=== PATIENT | male | born 1995 | race Caucasian/White ===

== ENCOUNTER 2019-04-18 23:04 | Inpatient (IN) | payer SELFPAY ==
[2019-04-19] MEDS ORDERED: ONDANSETRON 4 MG/2 ML VIAL ONE (01:05)
[2019-04-19] MEDS ORDERED: morphine SULFATE 4 MG/ML VIAL ONE ×2 (01:05→04:12)
[2019-04-19] MEDS ORDERED: FAMOTIDINE 20 MG/50 ML IVPB 20 MG/50 ML MG IVPB ONE ×2 (01:33→03:53)
[2019-04-19] MEDS ORDERED: SODIUM CHLORIDE 0.9% 500 ML INFUS.BAG IV ONE (01:33)
[2019-04-19] MEDS ORDERED: morphine CARPU-JECT 4 MG/1 ML DISP.SYRIN IVPUSH ONE ×2 (01:33→04:06)
[2019-04-19] MEDS ORDERED: SODIUM CHLORIDE 1,000 ML IV STA (01:33)
[2019-04-19] MEDS ORDERED: ONDANSETRON 4 MG/2 ML VIAL IVPB ONE (01:33)
--- NOTE | 2019-04-19 01:35 | PDOC ---
History of Present Illness - General Chief Complaint: Pain Stated Complaint: ABDOMINALAND LEFT SIDE PAIN Time Seen by Provider: 04/18/19 23:33 History Source: Patient Exam Limitations: No Limitations - History of Present Illness Initial Comments: 04/19/19 01:28 Patient is a 23-year-old male with history of exploratory laparotomy for worms as a child complaining of abdominal pain, bloating associated with nausea and vomiting since this morning. Patient states that his pain is gassy type 10/10, continuous, no aggravating or relieving factors. States that he contributed his symptoms to eating fasts a lot of oranges night prior due to his hunger. States he has not been passing gas below since this morning. He denies fever, chills. PMHX: as above PSOCHX: neg etoh, drug, cig ALL: NKDA GENERAL/CONSTITUTIONAL: No fever or chills. No weakness. No weight change. HEAD, EYES, EARS, NOSE AND THROAT: No change in vision. No ear pain or discharge. No sore throat. CARDIOVASCULAR: No chest pain or shortness of breath. RESPIRATORY: No cough, wheezing, or hemoptysis. GASTROINTESTINAL: (+) nausea, vomiting, (-) diarrhea or constipation. No rectal bleeding. GENITOURINARY: No dysuria, frequency, or change in urination. MUSCULOSKELETAL: No joint or muscle swelling or pain. No neck or back pain. SKIN AND BREASTS: No rash or easy bruising. NEUROLOGIC: No headache, vertigo, loss of consciousness, or loss of sensation. PSYCHIATRIC: No depression or anxiety. ENDOCRINE: No increased thirst. No abnormal weight change. HEMATOLOGIC/LYMPHATIC: No anemia, easy bleeding, or history of blood clots. ALLERGIC/IMMUNOLOGIC: No hives or skin allergy. No latex allergy. GENERAL: The patient is awake, alert, and fully oriented, in acute distress, actively vomiting. HEAD: Normal with no signs of trauma. EYES: Pupils equal, round and reactive to light, extraocular movements intact, sclera anicteric, conjunctiva clear. ENT: Ears normal, nares patent, oropharynx clear without exudates. Moist mucous membranes. NECK: Normal range of motion, supple without lymphadenopathy, JVD, or masses. LUNGS: Breath sounds equal, clear to auscultation bilaterally. No wheezes, and no crackles. HEART: Regular rate and rhythm, normal S1 and S2 without murmur, rub. ABDOMEN: Left upper abdomen distention, tympanic, Soft, tenderness to palpation generalized > in left upper quadrant, hypo-bowel sounds. (+)guarding, (+) rebound. No masses. EXTREMITIES: Normal range of motion, no edema. No clubbing or cyanosis. No cords, erythema, or tenderness. NEUROLOGICAL: Cranial nerves II through XII grossly intact. Normal speech, normal gait. PSYCH: Normal mood, normal affect. SKIN: Warm, Dry, normal turgor, no rashes or lesions noted. Past History - Past Medical History Allergies/Adverse Reactions: Allergies Allergy/AdvReac Type Severity Reaction Status Date / Time No Known Allergies Allergy Verified 04/18/19 23:13 Asthma: No Cancer: No Cardiac Disorders: No CVA: No COPD: No CHF: No - Surgical History GI Surgery: Yes (Intestinal obs as a 1y/o in [place]) - Suicide/Smoking/Psychosocial Hx Smoking History: Never smoked Information on smoking cessation initiated: No Drug/Substance Use Hx: No *Physical Exam - Vital Signs Last Vital Signs Temp Pulse Resp BP Pulse Ox 98 F 64 20 130/55 L 100 04/18/19 23:13 04/18/19 23:13 04/18/19 23:13 04/18/19 23:13 04/18/19 23:13 ED Treatment Course - LABORATORY CBC & Chemistry Diagram: 04/19/19 02:04 04/19/19 02:04 Medical Decision Making - Medical Decision Making 04/19/19 01:28 Patient is a 23-year-old male with history of exploratory laparotomy for worms as a child complaining of abdominal pain, bloating associated with nausea and vomiting since this morning. Patient states that his pain is gassy type 10/10, continuous, no aggravating or relieving factors. States that he he contributed to his symptoms to eat and fasts a lot of oranges last night due to his hunger. States he has not been passing gas below since this morning. He denies fever, chills. Patient with symptoms of abdominal pain, nausea, vomiting, passing gas no weight a previous abdominal surgery at risk for obstruction. Labs CT scan Pain meds, antinausea, Pepcid Reassess 04/19/19 03:14 Laboratory Tests 04/19/19 04/19/19 04/19/19 02:04 02:04 02:04 WBC 19.3 H Hgb 17.0 H Hct 51.5 H Plt Count 241 Sodium 136 Potassium 4.2 Chloride 101 Carbon Dioxide 24 Anion Gap 11 BUN 11 Creatinine 0.8 Random Glucose 119 H Lactic Acid 1.2 Lipase 143 04/19/19 04:14 Patient continues to be in pain given additional dose of morphine [address] Scan results pending 04/19/19 04:18 Patient Full Name: ABRIL COLE Patient Accession No: [id number] Patient : 1995 Reason for Exam: ABD PAIN Referring Physician: Patient Name: DOUGLAS SAMUELS THIS IS A PRELIMINARY REPORT FROM [facility] DATE OF SERVICE: 2019-04-19 03:10:19 IMAGES: [id number] EXAM: ABDOMEN \T\ PELVIS CT WITH CONTR HISTORY: Abdominal pain COMPARISON: None. FINDINGS: Lung bases are clear. The visualized cardiac chambers are normal size and configuration. Normal liver, gallbladder, pancreas, spleen, adrenal glands and kidneys. There is a small bowel obstruction small bowel dilated to 3.0 cm. Trace ascites is noted. No abscess or free air. Transition point is visualized in the lower mid abdomen on axial images 92-96, without hernia or obvious mass. There is no aortic aneurysm. There is no significant retroperitoneal lymphadenopathy. There is no evidence of appendicitis, although the appendix is not clearly visualized . The urinary bladder and prostate gland are normal. There is no significant pelvic lymphadenopathy. IMPRESSION: Small bowel obstruction with lower mid abdominal transition point, possibly due to adhesions, without abscess or free air. One or more of the following dose reduction techniques were used: automated exposure control, adjustment of the mA and/or kV according to patient size, use of iterative reconstructive technique. THIS DOCUMENT HAS BEEN ELECTRONICALLY SIGNED Cash Rivers MD 04/19/2019 03:40 EST Audrey Please call [facility] [phone]) with questions. INTERPRETING RADIOLOGIST: Conner Rivers MD Electronically Signed: Apr 19, 2019 03:41AM EDT CT scan of the both place an NG tube and admit the patient 04/19/19 05:14 Case was discussed with Dr. Navarrete who recommends admission to the hospitalist and will follow today while on the floor. *DC/Admit/Observation/Transfer Diagnosis at time of Disposition: Small bowel obstruction Abdominal pain Qualifiers: Abdominal location: generalized Qualified Code(s): R10.84 - Generalized abdominal pain Nausea and vomiting Qualifiers: Vomiting type: unspecified Vomiting Intractability: unspecified Qualified Code( s): R11.2 - Nausea with vomiting, unspecified - Discharge Dispostion Condition at time of disposition: Stable Decision to Admit order: Yes - Referrals - Patient Instructions - Post Discharge Activity
[2019-04-19 02:27] LABS: HEMATOCRIT 51.5 % (35.4-49); MCH 28.1 pg (25.7-33.7); MEAN CELL VOLUME 84.9 fl (80-96); MEAN PLT VOLUME 10.4 fl (7.5-11.1); MONO % 3.8 % (3.8-10.2); NEUT % 85.2 % (42.8-82.8); PLATELET COUNT 241 K/MM3 (134-434); RBC 6.07 M/mm3 (4.00-5.60); WHITE BLOOD COUNT 19.3 K/mm3 (4.0-10.0)
[2019-04-19 02:47] LABS: ALBUMIN 4.4 g/dl (3.4-5.0); BILIRUBIN,TOTAL 0.7 mg/dL (0.2-1); CALCIUM 9.8 mg/dL (8.5-10.1); CREATININE 0.8 mg/dL (0.55-1.3); POTASSIUM 4.2 mmol/L (3.5-5.1); TOT PROT 8.6 g/dl (6.4-8.2)
[2019-04-19] MEDS ORDERED: KETOROLAC TROMETHAMINE 30 MG/1 ML VIAL IVPUSH ONE (04:11)
[2019-04-19] MEDS ORDERED: ONDANSETRON 4 MG/2 ML VIAL IVPUSH PRN (05:54)
[2019-04-19] MEDS ORDERED: ACETAMINOPHEN 1000 MG/100 ML VIAL (NON FORMULARY) IVPB ONE (05:56)
--- NOTE | 2019-04-19 06:00 | HP ---
CHIEF COMPLAINT: abdominal pain PCP: none HISTORY OF PRESENT ILLNESS: 23 year old male with no significant past medical history presents to the hospital for abdominal pain, nausea and vomiting of 1 day duration. Reports that the pain started yesterday and progressed to severe 10/10 diffuse abdominal pain and bloating with associated nausea. Reports that his last BM was last night. Currently he states that he is not passing gas or having any BMs. Denies any new or exotic food intake. States that he had surgery in [place] for "worms" when he was 1 years old. Reports that they took out a piece of his intestine. Afterwards he denies having issues until around 1 year ago when he experienced similar symptoms which resolved spontaneously at home. He has not been to a doctor since then. No other medical problems. Currently denies chest pain, shortness of breath, fevers, chills. ER course was notable for: (1) WBC 19 (2) CT scan showing dilated small bowel with definite transition point in mid- lower abdomen consistent with small bowel obstruction (3) PAST MEDICAL HISTORY: denies PAST SURGICAL HISTORY: exploratory laparotomy with small bowel resection in [place] 22 years ago Social History: Smoking: denies Alcohol: denies Drugs: denies Family History: mother and father with diabetes Allergies No Known Allergies Allergy (Verified 04/18/19 23:13) HOME MEDICATIONS: REVIEW OF SYSTEMS CONSTITUTIONAL: Absent: fever, chills, diaphoresis, generalized weakness, malaise, loss of appetite, weight change HEENT: Absent: rhinorrhea, nasal congestion, throat pain, throat swelling, difficulty swallowing, mouth swelling, ear pain, eye pain, visual changes CARDIOVASCULAR: Absent: chest pain, syncope, palpitations, irregular heart rate, lightheadedness , peripheral edema RESPIRATORY: Absent: cough, shortness of breath, dyspnea with exertion, orthopnea, wheezing, stridor, hemoptysis GASTROINTESTINAL:abdominal pain, abdominal distension, nausea, vomiting, constipation Absent: diarrhea, melena, hematochezia GENITOURINARY: Absent: dysuria, frequency, urgency, hesitancy, hematuria, flank pain, genital pain MUSCULOSKELETAL: Absent: myalgia, arthralgia, joint swelling, back pain, neck pain SKIN: Absent: rash, itching, pallor HEMATOLOGIC/IMMUNOLOGIC: Absent: easy bleeding, easy bruising, lymphadenopathy, frequent infections ENDOCRINE: Absent: unexplained weight gain, unexplained weight loss, heat intolerance, cold intolerance NEUROLOGIC: Absent: headache, focal weakness or paresthesias, dizziness, unsteady gait, seizure, mental status changes, bladder or bowel incontinence PSYCHIATRIC: Absent: anxiety, depression, suicidal or homicidal ideation, hallucinations. PHYSICAL EXAMINATION Vital Signs - 24 hr 04/18/19 04/19/19 04/19/19 23:13 04:05 04:11 Temperature 98 F 97.8 F Pulse Rate 64 Pulse Rate [ 64 Radial] Respiratory 20 20 Rate Blood Pressure 130/55 L Blood Pressure 124/72 [Right Arm] O2 Sat by Pulse 100 97 97 Oximetry (%) GENERAL: A&Ox3, mild distress EYES: PERRLA, EOMI ENT: Moist mucus membranes, NGT inserted in nose draining yellowish-clear fluid with bloody streaks NECK: No JVD LUNGS: CTA, no wheezes HEART: mildly tachycardic but regular, no murmurs ABDOMEN: abdomen distended more on LLQ than elsewhere, bowel sounds absent, tender to palpation diffusely with majority of tenderness in LLQ; surgical scars noted in mid/hypogastrum and RLQ, well healed. MUSCULOSKELETAL: No CVA Tenderness EXTREMITIES: 2+ pulses, no edema. NEUROLOGICAL: Cranial nerves II-XII intact. Laboratory Results - last 24 hr 04/19/19 04/19/19 04/19/19 02:04 02:04 02:04 WBC 19.3 H RBC 6.07 H Hgb 17.0 H Hct 51.5 H MCV 84.9 MCH 28.1 MCHC 33.0 RDW 14.0 Plt Count 241 MPV 10.4 Absolute Neuts (auto) 16.4 H Neutrophils % 85.2 H Lymphocytes % 11.0 Monocytes % 3.8 Eosinophils % 0.0 Basophils % 0.0 Nucleated RBC % 0 Sodium 136 Potassium 4.2 Chloride 101 Carbon Dioxide 24 Anion Gap 11 BUN 11 Creatinine 0.8 Est GFR (CKD-EPI)AfAm 143.90 Est GFR (CKD-EPI)NonAf 124.16 Random Glucose 119 H Lactic Acid 1.2 Calcium 9.8 Total Bilirubin 0.7 AST 18 ALT 33 Alkaline Phosphatase 98 Total Protein 8.6 H Albumin 4.4 Lipase 143 ASSESSMENT/PLAN: 23 year old male with no significant past medical history presents to the hospital for abdominal pain, nausea and vomiting of 1 day duration and admitted for the evaluation and management of small bowel obstruction #Small Bowel Obstruction: likely 2/2 to postoperative adhesions from his surgery 22 years ago. Given he had a similar episode 1 year ago, it is possible that this is an exacerbated episode of adhesions producing SBO. -CT scan showing dilated small bowel with definite transition point in mid- lower abdomen consistent with small bowel obstruction -keep NPO -LR @ 125cc/hr, 2 bags ordered before evaluation -EKG ordered -WBC 19, likely reactive, will hold abx for now -surgery Dr. Castelan called by ED, will evaluate in AM -pain control with ofirmev, reassess in AM -NGT to decompress stomach and proximal small bowel -carefully monitor electrolytes in the morning and replete as necessary #Leukocytosis: likely reactive from pain and surrounding inflammation around SBO -monitor WBC -monitor off Abx #FEN -LR @ 125cc/hr -lytes normal, replete as necessary this AM -NPO #Prophylaxis -SCDs for prophylaxis #Disposition -admit med surg, pending surgical evaluation Visit type - Emergency Visit Emergency Visit: Yes Care time: The patient presented to the Emergency Department on the above date and was hospitalized for further evaluation of their emergent condition. - New Patient This patient is new to me today: Yes Date on this admission: 04/19/19 - Critical Care Critical Care patient: No
[2019-04-19] MEDS ORDERED: ACETAMINOPHEN INJECTION 100 ML IVPB ONE (06:08)
--- NOTE | 2019-04-19 06:14 | PN ---
Teaching Attending Note Name of Resident: Jose Newberry ATTENDING PHYSICIAN STATEMENT I saw and evaluated the patient. Chart, data, imaging reviewed. I reviewed the resident's note and discussed the case with the resident. I agree with the resident's findings and plan as documented. SUBJECTIVE: 23yo man with medical history remarkable only for intestinal surgery when he was 3 for "worms" - resulting in partial bowel resection, c/o mid- severe mid abdominal pain x 1 day. Last BM was one day ago, not passing gas since then. Patient with some nausea but not vomiting. No diarrhea or fevers. OBJECTIVE: Last Vital Signs Temp Pulse Resp BP Pulse Ox 97.8 F 64 20 124/72 97 04/19/19 04:11 04/19/19 04:11 04/19/19 04:11 04/19/19 04:11 04/19/19 04:11 gen - appears uncomfortable, well built heent- moist oral mucosa cor- s1+s2+rrr chest clear abdomen - soft, nondistended, decreased BS, tenderness to palp LLQ, no rebound tenderness, large scar ext - no pedal edema Abnormal Lab Results 04/19/19 04/19/19 02:04 02:04 WBC 19.3 H RBC 6.07 H Hgb 17.0 H Hct 51.5 H Absolute Neuts (auto) 16.4 H Neutrophils % 85.2 H Random Glucose 119 H Total Protein 8.[address] of abdomen/pelvis- reviewed ekg - reviewed ASSESSMENT AND PLAN: #SBO, no free air on CT abd read. Lactate wnl. SBO may be secondary to adhesions from prior surgery. -admit to med/surg -surgery consulted -NPO -check electrolytes- mg, phos, replete prn -IV fluid hydration -IV tylenol prn for pain -zofran IV prn for nausea -heparin sc for DVT ppx #Leukocytosis- thought to be reactive to SBO, no evidence of infection at this time. -monitor off antibiotics for now -trend cbc -monitor vs closely
[2019-04-19] MEDS: LACTATED RINGERS SOLUTION 1,000 ML IV SCH ×2 (06:17→16:37)
[2019-04-19 06:54] LABS: HEMATOCRIT 48.6 % (35.4-49); HEMOGLOBIN 16.4 GM/dL (11.7-16.9); MCH 28.8 pg (25.7-33.7); MCHC 33.8 g/dl (32.0-35.9); MEAN CELL VOLUME 85.3 fl (80-96); MEAN PLT VOLUME 9.9 fl (7.5-11.1); PLATELET COUNT 213 K/MM3 (134-434); RBC 5.69 M/mm3 (4.00-5.60); RDW 14.1 % (11.9-15.9); WHITE BLOOD COUNT 15.9 K/mm3 (4.0-10.0)
[2019-04-19 07:16] LABS: ALBUMIN 3.7 g/dl (3.4-5.0); BILIRUBIN,TOTAL 0.8 mg/dL (0.2-1); CALCIUM 8.8 mg/dL (8.5-10.1); CREATININE 0.7 mg/dL (0.55-1.3); MAGNESIUM 2.2 mg/dL (1.8-2.4); PHOSPHOROUS 4.9 mg/dL (2.5-4.9); POTASSIUM 3.7 mmol/L (3.5-5.1); TOT PROT 7.3 g/dl (6.4-8.2)
--- NOTE | 2019-04-19 09:12 | PN ---
Progress Note, Physician Chief Complaint: abdominal pain and nausea History of Present Illness: 23 year old male who presents to the hospital for abdominal pain, nausea and vomiting of 1 day duration. Patient reports a past surgical history of intestinal surgery when he was around 3 years old after eating soil. On admission, he reports that the abdominal pain started 2 days ago and progressed to severe diffused abdominal pain, with bloating and nausea. He had a BM 2 days ago. Currently not passing gas. Patient does not have a PCP currently and denies any other medical problems. Patient was seen by surgery and no surgical interventions planned at this time. He is being followed by surgery. Currently denies chest pain, shortness of breath, fevers, chills. On admission with WBC was [address] showed dilated small bowel with definite transition point in mid-lower abdomen consistent with small bowel obstruction. An NGT has been placed to low intermittent suction. - Current Medication List Current Medications: Active Medications Acetaminophen (Ofirmev Injection -) 1,000 mg IVPB Q6H PRN PRN Reason: PAIN LEVEL 7 - 10 Lactated Ringer's (Lactated Ringers Solution) 1,000 mls @ 125 mls/hr IV [facility] Stop: 04/20/19 13:59 Last Admin: 04/19/19 06:17 Dose: 125 mls/hr Ondansetron HCl (Zofran Injection) 4 mg IVPUSH Q6H PRN PRN Reason: NAUSEA - Objective Vital Signs: Vital Signs Temperature 98.7 F 04/19/19 06:25 Pulse Rate 64 04/19/19 07:46 Respiratory Rate 18 04/19/19 07:46 Blood Pressure 109/72 04/19/19 07:46 O2 Sat by Pulse Oximetry (%) 97 04/19/19 07:46 Constitutional: Yes: Calm Eyes: Yes: WNL HENT: Yes: Atraumatic Neck: Yes: WNL Cardiovascular: Yes: Regular Rate and Rhythm Respiratory: Yes: Regular, CTA Bilaterally Gastrointestinal: Yes: Soft, Hypoactive Bowel Sounds ...Rectal Exam: Yes: Deferred Edema: No Integumentary: Yes: WNL Labs: CBC, BMP 04/19/19 06:30 04/19/19 06:30 - ....Imaging Cat Scan: Image Reviewed Problem List - Problems (1) Abdominal pain Assessment/Plan: On admission with WBC was [address] showed dilated small bowel with definite transition point in mid-lower abdomen consistent with small bowel obstruction. An NGT has been placed to low intermittent suction. WBC currently 15 and he is afebrile. Monitor WBC and for any symptoms of sepsis, currently does not have any. Monitor off antibiotics. morphine for pain, zofran for nausea Code(s): R10.9 - UNSPECIFIED ABDOMINAL PAIN Qualifiers: Abdominal location: generalized Qualified Code(s): R10.84 - Generalized abdominal pain (2) Small bowel obstruction Assessment/Plan: conservative management of SBO per surgery. monitor NGT output Code(s): K56.609 - UNSP INTESTNL OBST, UNSP TO PARTIAL VERSUS COMPLETE OBST (3) Prophylactic measure Assessment/Plan: fen NPO IVF monitor electrolytes prophy SCDs full code Code(s): Z29.9 - ENCOUNTER FOR PROPHYLACTIC MEASURES, UNSPECIFIED Visit type - Emergency Visit Emergency Visit: Yes ED Registration Date: 04/19/19 Care time: The patient presented to the Emergency Department on the above date and was hospitalized for further evaluation of their emergent condition. - New Patient This patient is new to me today: Yes Date on this admission: 04/19/19 - Critical Care Critical Care patient: No - Discharge Referral Referred to [facility] Med [facility] No
[2019-04-19 10:41] VITALS: BMI 27.9
--- NOTE | 2019-04-19 11:09 | EKG ---
Test Reason : Blood Pressure : / mmHG Vent. Rate : 070 BPM Atrial Rate : 070 BPM P-R Int : 138 ms QRS Dur : 086 ms QT Int : 382 ms P-R-T Axes : 062 002 004 degrees QTc Int : 412 ms NORMAL SINUS RHYTHM INFERIOR INFARCT , AGE UNDETERMINED ABNORMAL ECG NO PREVIOUS ECGS AVAILABLE Confirmed by FERCHO BARNES MD ([id number]) on 04/19/2019 11:08:52 AM Referred By: Confirmed By:FERCHO BARNES MD
--- NOTE | 2019-04-19 16:49 | CONS ---
DATE OF CONSULTATION: 04/19/2019 REASON FOR CONSULTATION: Small bowel obstruction. This is an emergent consultation. 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 He subsequently had that colostomy reversed. He was well until approximately 8 years ago, when he was admitted and treated conservatively for a mechanical bowel obstruction secondary to be secondary to adhesions. He has been well for the past 8 years until yesterday, when he ate a large amount of oranges last night, and into this morning he developed abdominal pain, nausea, and vomiting. He had a CAT scan of the abdomen and pelvis which is suggestive of a mechanical bowel obstruction located at the distal ileum with a transition point seen. There was no ascites noted. His white blood cell count was 19 on arrival and repeat was 15,000. He was admitted to the hospital with nasogastric tube decompression. He has had clear light gastric content that is not substantial in his nasogastric tube. He denies flatus, denies bowel movement. PAST MEDICAL HISTORY: As in HPI. PAST SURGICAL HISTORY: As in HPI. ALLERGIES: No known drug allergies. FAMILY HISTORY: Negative for family. SOCIAL HISTORY: Negative for alcohol and tobacco. MEDICATION: He takes no medications. REVIEW OF SYSTEMS: GENERAL: Denies fatigue or malaise. CARDIAC: Denies chest pain or palpitations. RESPIRATORY: Has shortness of breath, wheeze. GASTROINTESTINAL: As in HPI. Denies recent weight loss. GENITOURINARY: Denies dysuria. MUSCULOSKELETAL: Denies joint pain PSYCHIATRIC: Denies hearing voices. PHYSICAL EXAMINATION: GENERAL: Well-developed, well-nourished 23-year-old male in no distress. HEAD: Normocephalic, sclerae anicteric. NECK: Supple. CHEST: Clear. ABDOMEN: Soft. It is mildly distended. He has a lower midline surgical scar, and he has a right paramedian surgical scar. He has no obvious hernias. He has minimal tenderness. EXTREMITIES: Show no edema. LABORATORY: As stated in the HPI. IMAGING: As stated in the HPI. ASSESSMENT: A 23-year-old male with previous surgery for bowel obstruction with colostomy and reversal of colostomy. He has had history of adhesive small bowel disease 8 years ago, and now presents with small bowel obstruction after eating a large amount of oranges. Clinically this is a mechanical bowel obstruction likely from a narrow portion of significant fiber bolus. RECOMMENDATION: Continue nasogastric tube. I suspect the patient will be successfully treated conservatively. He wishes to avoid a laparotomy in this setting, as that could cause future scar tissue, which could cause future obstructions. Patient is currently nontoxic without evidence of bowel compromise. If he does not get better in the next several days, he may require surgical intervention. DO CONNER FARRIS/[id number] MTDD
[2019-04-19] MEDS: ACETAMINOPHEN 1000 MG/100 ML VIAL (NON FORMULARY) IVPB PRN (17:36)
[2019-04-19] MEDS ORDERED: MORPHINE SULFATE 2 MG/ML VIAL IM PRN (22:41)
[2019-04-20 06:47] LABS: BASO % 0.2 % (0-2.0); EOS % 0.2 % (0-4.5); HEMATOCRIT 45.3 % (35.4-49); HEMOGLOBIN 15.3 GM/dL (11.7-16.9); LYMPH % 20.1 % (8-40); MCH 28.9 pg (25.7-33.7); MCHC 33.8 g/dl (32.0-35.9); MEAN CELL VOLUME 85.4 fl (80-96); MEAN PLT VOLUME 9.8 fl (7.5-11.1); MONO % 7.3 % (3.8-10.2); NEUT % 72.2 % (42.8-82.8); PLATELET COUNT 215 K/MM3 (134-434); RBC 5.31 M/mm3 (4.00-5.60); WHITE BLOOD COUNT 9.6 K/mm3 (4.0-10.0)
[2019-04-20 07:17] LABS: ALBUMIN 3.1 g/dl (3.4-5.0); BILIRUBIN,TOTAL 0.5 mg/dL (0.2-1); CALCIUM 8.6 mg/dL (8.5-10.1); CREATININE 0.8 mg/dL (0.55-1.3); MAGNESIUM 2.1 mg/dL (1.8-2.4); POTASSIUM 4.6 mmol/L (3.5-5.1); TOT PROT 6.4 g/dl (6.4-8.2)
[2019-04-20] MEDS: LACTATED RINGERS SOLUTION 1,000 ML IV SCH (07:45)
--- NOTE | 2019-04-20 07:51 | PN ---
Progress Note, Physician Chief Complaint: abdominal pain History of Present Illness: 23 year old male who presents to the hospital for abdominal pain, nausea and vomiting x 1day Patient reports a past surgical history of intestinal surgery when he was around 3 years old after eating soil. On admission, he reports that the abdominal pain started 2 days ago and progressed to severe diffused abdominal pain, with bloating and nausea. On admission had a BM 2 days ago, not passing gas. Patient was seen by surgery and no surgical interventions planned at this time. On admission with WBC was [address] showed dilated small bowel with definite transition point in mid-lower abdomen consistent with small bowel obstruction. An NGT has been placed to low intermittent suction. - Current Medication List Current Medications: Active Medications Acetaminophen (Ofirmev Injection -) 1,000 mg IVPB Q6H PRN PRN Reason: PAIN LEVEL 7 - 10 Last Admin: 04/19/19 17:36 Dose: 1,000 mg Lactated Ringer's (Lactated Ringers Solution) 1,000 mls @ 125 mls/hr IV ASDIR DIMITRY Stop: 04/20/19 13:59 Last Admin: 04/20/19 07:45 Dose: 125 mls/hr Morphine Sulfate (Morphine Sulfate) 2 mg IM Q6H PRN PRN Reason: PAIN LEVEL 7 - 10 Ondansetron HCl (Zofran Injection) 4 mg IVPUSH Q6H PRN PRN Reason: NAUSEA Last Admin: 04/19/19 21:15 Dose: 4 mg Pantoprazole Sodium (Protonix Iv) 40 mg IVPUSH DAILY [facility] - Objective Vital Signs: Vital Signs Temperature 98.5 F 04/19/19 22:00 Pulse Rate 68 04/19/19 22:00 Respiratory Rate 16 04/19/19 22:00 Blood Pressure 124/72 04/19/19 22:00 O2 Sat by Pulse Oximetry (%) 95 04/19/19 21:00 Constitutional: Yes: Well Nourished, No Distress, Calm Eyes: Yes: WNL, Conjunctiva Clear, EOM Intact HENT: Yes: WNL, Atraumatic, Normocephalic Neck: Yes: WNL, Supple, Trachea Midline Cardiovascular: Yes: WNL, Regular Rate and Rhythm Respiratory: Yes: WNL, Regular, CTA Bilaterally Gastrointestinal: Yes: WNL, Soft, Hypoactive Bowel Sounds, Tenderness (diffuse) , Other (NGT to right nares to LIWS) ...Rectal Exam: Yes: Deferred Genitourinary: Yes: WNL Musculoskeletal: Yes: WNL Extremities: Yes: WNL Edema: No Peripheral Pulses WNL: Yes Integumentary: Yes: WNL Neurological: Yes: WNL, Alert, Oriented ...Motor Strength: WNL Psychiatric: Yes: WNL Labs: CBC, BMP 04/20/19 06:15 04/20/19 06:15 - ....Imaging Chest X-ray: Report Reviewed Cat Scan: Report Reviewed EKG: Report Reviewed Problem List - Problems (1) Abdominal pain Assessment/Plan: urgery pt seen and examined. feels better with less pain. 2 small bm without flatus. ngt 350 clear abd- soft, moderately distended, mild tenderness Plan- psbo. cont ngt. cont npo. kub to follow migration of contrast Code(s): R10.9 - UNSPECIFIED ABDOMINAL PAIN Qualifiers: Abdominal location: generalized Qualified Code(s): R10.84 - Generalized abdominal pain (2) Nausea and vomiting Assessment/Plan: mild nauseas, no vomiting Maintain NPO Zofran PRN Code(s): R11.2 - NAUSEA WITH VOMITING, UNSPECIFIED Qualifiers: Vomiting type: unspecified Vomiting Intractability: unspecified Qualified Code(s): R11.2 - Nausea with vomiting, unspecified (3) Prophylactic measure Assessment/Plan: prophy SCDs full code Dispo maintain as inpatient Code(s): Z29.9 - ENCOUNTER FOR PROPHYLACTIC MEASURES, UNSPECIFIED (4) Small bowel obstruction Assessment/Plan: -conservative management of SBO per surgery. monitor NGT output NPO serial AXR Code(s): K56.609 - UNSP INTESTNL OBST, UNSP TO PARTIAL VERSUS COMPLETE OBST Visit type - Emergency Visit Emergency Visit: Yes ED Registration Date: 04/19/19 Care time: The patient presented to the Emergency Department on the above date and was hospitalized for further evaluation of their emergent condition. - New Patient This patient is new to me today: Yes Date on this admission: 04/20/19 - Critical Care Critical Care patient: No - Discharge Referral Referred to [facility] Med P.C.: No
[2019-04-20] MEDS: LACTATED RINGERS SOLUTION 1,000 ML/1,000 ML INFUS.BAG IV SCH ×2 (09:25→16:23)
[2019-04-20] MEDS: PANTOPRAZOLE SODIUM 40 MG VIAL IVPUSH SCH (09:26)
[2019-04-20] MEDS: ACETAMINOPHEN 1000 MG/100 ML VIAL (NON FORMULARY) IVPB PRN (09:32)
--- NOTE | 2019-04-20 13:08 | PN ---
Progress Note (short form) - Note Progress Note: surgery pt seen and examined. feels better with less pain. 2 small bm without flatus. ngt 350 clear abd- soft, moderately distended, mild tenderness Plan- psbo. cont ngt. cont npo. kub to follow migration of contrast
[2019-04-21] MEDS: LACTATED RINGERS SOLUTION 1,000 ML/1,000 ML INFUS.BAG IV SCH ×2 (02:31→11:23)
--- NOTE | 2019-04-21 07:46 | PN ---
Progress Note, Physician Chief Complaint: abdominal pain History of Present Illness: 23 year old male who presents to the hospital for abdominal pain, nausea and vomiting x 1day Patient reports a past surgical history of intestinal surgery when he was around 3 years old after eating soil. On admission, he reports that the abdominal pain started 2 days ago and progressed to severe diffused abdominal pain, with bloating and nausea. On admission had a BM 2 days ago, not passing gas. Patient was seen by surgery and no surgical interventions planned at this time. On admission with WBC was [address] showed dilated small bowel with definite transition point in mid-lower abdomen consistent with small bowel obstruction. An NGT has been placed to low intermittent suction. - Current Medication List Current Medications: Active Medications Acetaminophen (Ofirmev Injection -) 1,000 mg IVPB Q6H PRN PRN Reason: PAIN LEVEL 7 - 10 Last Admin: 04/20/19 09:32 Dose: 1,000 mg Lactated Ringer's (Lactated Ringers Solution) 1,000 ml in 1,000 mls @ 125 mls/ hr IV ASDIR [facility] Last Admin: 04/21/19 02:31 Dose: 125 mls/hr Morphine Sulfate (Morphine Sulfate) 2 mg IM Q6H PRN PRN Reason: PAIN LEVEL 7 - 10 Ondansetron HCl (Zofran Injection) 4 mg IVPUSH Q6H PRN PRN Reason: NAUSEA Last Admin: 04/19/19 21:15 Dose: 4 mg Pantoprazole Sodium (Protonix Iv) 40 mg IVPUSH DAILY [facility] Last Admin: 04/20/19 09:26 Dose: 40 mg - Objective Vital Signs: Vital Signs Temperature 98.9 F 04/21/19 05:51 Pulse Rate 75 04/21/19 05:51 Respiratory Rate 18 04/21/19 05:51 Blood Pressure 113/62 04/21/19 05:51 O2 Sat by Pulse Oximetry (%) 96 04/20/19 21:00 Constitutional: Yes: Well Nourished, No Distress, Calm Eyes: Yes: WNL, Conjunctiva Clear, EOM Intact HENT: Yes: WNL, Atraumatic, Normocephalic Neck: Yes: WNL, Supple, Trachea Midline Cardiovascular: Yes: WNL, Regular Rate and Rhythm Respiratory: Yes: WNL, Regular, CTA Bilaterally Gastrointestinal: Yes: WNL, Soft, Hypoactive Bowel Sounds ...Rectal Exam: Yes: Deferred Genitourinary: Yes: WNL Musculoskeletal: Yes: WNL Extremities: Yes: WNL Edema: No Integumentary: Yes: WNL Neurological: Yes: WNL, Alert, Oriented ...Motor Strength: WNL Psychiatric: Yes: WNL, Alert, Oriented Labs: CBC, BMP 04/20/19 06:15 04/20/19 06:15 - ....Imaging Chest X-ray: Report Reviewed, Image Reviewed Cat Scan: Report Reviewed (abdominal) Problem List - Problems (1) Abdominal pain Assessment/Plan: pateint with minimal abd pain today, had large BH today and [address] Castelan and NGT to be removed Code(s): R10.9 - UNSPECIFIED ABDOMINAL PAIN Qualifiers: Abdominal location: generalized Qualified Code(s): R10.84 - Generalized abdominal pain (2) Nausea and vomiting Assessment/Plan: No N/V Maintain NPO, if for pain, N/V overnight may start clears Zofran PRN Code(s): R11.2 - NAUSEA WITH VOMITING, UNSPECIFIED Qualifiers: Vomiting type: unspecified Vomiting Intractability: unspecified Qualified Code(s): R11.2 - Nausea with vomiting, unspecified (3) Prophylactic measure Assessment/Plan: prophy SCDs full code Dispo maintain as inpatient Possible dc if no pain , N/V tomorrow after eating Code(s): Z29.9 - ENCOUNTER FOR PROPHYLACTIC MEASURES, UNSPECIFIED (4) Small bowel obstruction Assessment/Plan: -resolving appreciate Surgery input Code(s): K56.609 - UNSP INTESTNL OBST, UNSP TO PARTIAL VERSUS COMPLETE OBST Visit type - Emergency Visit Emergency Visit: Yes ED Registration Date: 04/19/19 Care time: The patient presented to the Emergency Department on the above date and was hospitalized for further evaluation of their emergent condition. - New Patient This patient is new to me today: No - Critical Care Critical Care patient: No - Discharge Referral Referred to [facility] Med P.C.: No
[2019-04-21 08:58] LABS: BASO % 0.2 % (0-2.0); EOS % 0.7 % (0-4.5); HEMATOCRIT 41.1 % (35.4-49); LYMPH % 28.1 % (8-40); MCH 28.8 pg (25.7-33.7); MEAN CELL VOLUME 84.8 fl (80-96); MEAN PLT VOLUME 10.2 fl (7.5-11.1); MONO % 7.7 % (3.8-10.2); NEUT % 63.3 % (42.8-82.8); PLATELET COUNT 192 K/MM3 (134-434); RBC 4.85 M/mm3 (4.00-5.60); RDW 14.1 % (11.9-15.9); WHITE BLOOD COUNT 7.8 K/mm3 (4.0-10.0)
[2019-04-21] MEDS: PANTOPRAZOLE SODIUM 40 MG VIAL IVPUSH SCH (09:01)
[2019-04-21 09:30] LABS: ALBUMIN 2.9 g/dl (3.4-5.0); BILIRUBIN,TOTAL 0.6 mg/dL (0.2-1); CALCIUM 8.5 mg/dL (8.5-10.1); CREATININE 0.7 mg/dL (0.55-1.3); MAGNESIUM 2.2 mg/dL (1.8-2.4); POTASSIUM 4.1 mmol/L (3.5-5.1); TOT PROT 6.1 g/dl (6.4-8.2)
--- NOTE | 2019-04-21 11:54 | PN ---
Progress Note (short form) - Note Progress Note: surgery pt seen and examined. had large bm and flatus and is hungy. kub shows gas in colon. abd- soft, moderate distension Plan- resolving psbo. remove ngt. keep npo today. likely liquids tomorrow and d/c home if tolerates.
[2019-04-22 07:21] LABS: BASO % 0.2 % (0-2.0); HEMATOCRIT 40.8 % (35.4-49); HEMOGLOBIN 13.8 GM/dL (11.7-16.9); MCH 28.8 pg (25.7-33.7); MCHC 33.8 g/dl (32.0-35.9); MEAN CELL VOLUME 85.1 fl (80-96); MEAN PLT VOLUME 10.6 fl (7.5-11.1); MONO % 7.1 % (3.8-10.2); NEUT % 53.7 % (42.8-82.8); PLATELET COUNT 199 K/MM3 (134-434); RBC 4.79 M/mm3 (4.00-5.60); RDW 13.5 % (11.9-15.9); WHITE BLOOD COUNT 6.9 K/mm3 (4.0-10.0)
[2019-04-22 07:27] LABS: BILIRUBIN,TOTAL 0.5 mg/dL (0.2-1); CALCIUM 8.4 mg/dL (8.5-10.1); CREATININE 0.7 mg/dL (0.55-1.3); MAGNESIUM 2.1 mg/dL (1.8-2.4); POTASSIUM 4.4 mmol/L (3.5-5.1)
[2019-04-22] MEDS: PANTOPRAZOLE SODIUM 40 MG VIAL IVPUSH SCH (10:12)
[2019-04-22] MEDS: LACTATED RINGERS SOLUTION 1,000 ML/1,000 ML INFUS.BAG IV SCH (10:12)
--- NOTE | 2019-04-22 12:16 | PN ---
Progress Note (short form) - Note Progress Note: surgery pt seen and examined. feels well. on clear liquids and tolerating so far. no nausea. no pain. kub reviewed abd- soft, mild distension, nt Plan- resolving psbo. if tolerates can d/c today on liquids till Friday. Can advance to regular diet at home at that time. f/u prn.
[2019-04-22 13:25] VITALS: BP 114/72; PULSE 72; TEMP 98.7
--- NOTE | 2019-04-22 14:17 | DS ---
Physical Examination Vital Signs: Vital Signs Temperature 98.7 F 04/22/19 13:23 Pulse Rate 72 04/22/19 13:23 Respiratory Rate 18 04/22/19 13:23 Blood Pressure 114/72 04/22/19 13:23 O2 Sat by Pulse Oximetry (%) 99 04/22/19 09:00 Constitutional: Yes: Well Nourished, No Distress, Calm Eyes: Yes: WNL, Conjunctiva Clear, EOM Intact HENT: Yes: WNL, Atraumatic, Normocephalic Neck: Yes: WNL, Supple, Trachea Midline Cardiovascular: Yes: WNL, Regular Rate and Rhythm Respiratory: Yes: WNL, Regular, CTA Bilaterally Gastrointestinal: Yes: WNL, Normal Bowel Sounds, Soft ...Rectal Exam: Yes: Deferred Renal/: Yes: WNL Musculoskeletal: Yes: WNL Extremities: Yes: WNL Peripheral Pulses WNL: Yes Integumentary: Yes: WNL Neurological: Yes: WNL, Alert, Oriented ...Motor Strength: WNL Psychiatric: Yes: WNL Labs: CBC, BMP 04/22/19 06:00 04/22/19 06:00 Discharge Summary Reason For Visit: SMALL BOWEL OBSTRUCTION,NAUSEA AND VOMITING, Current Active Problems Nausea and vomiting (Acute) Prophylactic measure (Acute) Small bowel obstruction (Acute) Hospital Course: NGT placed with complete bowel rest since admission. NGT removed 04/21 and liquids introduced on 04/22. No abdominal pain, N/V. Patient to be discharged home on liquid diet until friday and then resume regular diet. Follow up with GI as needed. Condition: Good - Instructions Diet, Activity, Other Instructions: DIET ONLY clear liquids until Friday-soups, juices, tea/ coffee(decaf) small amount of skim milk allowed. Start regular food on friday-keep the diet light and bland -no heavy spices, fried foods for a couple of weeks. If your'e not have daily bowel movements or passing gas call the hospital. Disposition: HOME This patient is new to me today: No Emergency Visit: Yes ED Registration Date: 04/19/19 Care time: The patient presented to the Emergency Department on the above date and was hospitalized for further evaluation of their emergent condition. Critical Care patient: No - Discharge Referral Referred to [facility] Med P.C.: No
== END 2019-04-22 14:50 | disposition home or self-care (01) | DRG 247 ==
LOC: JER 23:04 → JERBED 04-19 05:46 → J7W 04-19 07:58
PROVIDERS: ADMIT Internal Medicine; ATTEND Nurse Practitioner Acute Care
PROC: 0D9670Z Drainage of Stomach with Drainage Device, Via Natural or Artificial Opening (ICD-10-PCS; principal; 2019-04-19)
PROC: 0DP6XUZ Removal of Feeding Device from Stomach, External Approach (ICD-10-PCS; 2019-04-21)
DX: K56.50 Intestinal adhesions [bands], unspecified as to partial versus complete obstruction (principal); D72.829 Elevated white blood cell count, unspecified; R10.84 Generalized abdominal pain; R11.2 Nausea with vomiting, unspecified
CPT/HCPCS: 36415; 71045-TC-FY; 74018-TC-FY; 74019-TC-FY; 74177-TC; 80053; 83605; 83690; 83735; 84100; 85025; 85027; 93005; 93010; 99285-25; J0131; J7030